=== PATIENT | male | born 1935 | race Caucasian/White ===

== ENCOUNTER 2022-12-28 13:05 | Inpatient (IN) | payer MEDICARE, BC ==
[2022-12-28] MEDS ORDERED: Magnesium Sulfate/Water 2 GM in Premix Bag 1 BAG IV ONE (14:42)
[2022-12-28] MEDS ORDERED: Aspirin 81 MG Tab.Chew PO STA (14:44)
[2022-12-28] MEDS ORDERED: Sodium Chloride 0.9% 1,000 ML IV SCH (14:45)
[2022-12-28] MEDS ORDERED: Iopamidol 755 Mg/ML 100 ML Bottle IVPUSH ONE (14:50)
[2022-12-28] MEDS ORDERED: Sodium Chloride 0.9% 10 ML Syringe FLUSH ONE (14:50)
[2022-12-28] MEDS ORDERED: Sodium Chloride 0.9% 100 ML IV SCH (15:00)
[2022-12-28] MEDS ORDERED: cefTRIAXone 1 GM in Sodium Chloride 0.9% 100 ML IV STA (15:48)
[2022-12-28 17:08] LABS: CORONAVIRUS COVID-19 NAA NEGATIVE (NEGATIVE)
[2022-12-28] MEDS ORDERED: cefTRIAXone 1 GM Vial ONE (19:16)
[2022-12-28] MEDS ORDERED: Docusate Sodium 100 MG Cap PO PRN (20:58)
[2022-12-28] MEDS ORDERED: Ondansetron 4 MG/2 ML SDV IV PRN (20:58)
[2022-12-28] MEDS ORDERED: Polyethylene Glycol 3350 Powder 17 GM Packet PO PRN (20:58)
[2022-12-28] MEDS ORDERED: Sodium Chloride 0.9% 10 ML Syringe FLUSH PRN (20:58)
[2022-12-28] MEDS ORDERED: Ondansetron 4 MG Tab.DIS PO PRN (20:58)
[2022-12-28] MEDS: Sodium Chloride 0.9% 1,000 ML IV SCH (23:24)
[2022-12-29] MEDS: Sodium Chloride 0.9% 1,000 ML IV SCH ×2 (08:53→12:25)
[2022-12-29] MEDS: cefTRIAXone 2 GM in Sodium Chloride 0.9% 100 ML IV SCH ×2 (12:51→20:15)
[2022-12-29] MEDS: Metoprolol Tartrate 25 MG Tab PO SCH (13:56)
[2022-12-29] MEDS: Apixaban 5 MG Tab PO SCH (20:13)
[2022-12-29] MEDS: Acetaminophen 325 MG Tab PO PRN (20:14)
[2022-12-30] MEDS: Metoprolol Tartrate 25 MG Tab PO SCH ×2 (00:02→12:13)
[2022-12-30] MEDS: Sodium Chloride 0.9% 1,000 ML IV SCH ×4 (03:52→21:30)
[2022-12-30] MEDS: atorvaSTATin 20 MG Tab PO SCH (08:26)
[2022-12-30] MEDS: Cyanocobalamin (Vitamin B12) 1,000 MCG Tab PO SCH (08:26)
[2022-12-30] MEDS: Apixaban 5 MG Tab PO SCH ×2 (08:26→20:24)
[2022-12-30] MEDS: Tamsulosin 0.4 MG Cap.ER PO SCH (08:26)
[2022-12-30] MEDS: Acetaminophen 325 MG Tab PO PRN (20:24)
[2022-12-30] MEDS: cefTRIAXone 2 GM in Sodium Chloride 0.9% 100 ML IV SCH (20:25)
[2022-12-31] MEDS: Metoprolol Tartrate 25 MG Tab PO SCH (01:02)
[2022-12-31] MEDS: Tamsulosin 0.4 MG Cap.ER PO SCH (09:35)
[2022-12-31] MEDS: Cyanocobalamin (Vitamin B12) 1,000 MCG Tab PO SCH (09:35)
[2022-12-31] MEDS: atorvaSTATin 20 MG Tab PO SCH (09:35)
[2022-12-31] MEDS: Apixaban 5 MG Tab PO SCH (09:35)
== END 2022-12-31 14:56 | disposition home or self-care (01) | DRG 558 ==
LOC: JD.ED 13:05 → JD.MS 20:59
PROVIDERS: ADMIT Hospitalist; ATTEND Hospitalist
DX: M62.82 Rhabdomyolysis (principal); N39.0 Urinary tract infection, site not specified; I48.91 Unspecified atrial fibrillation; E78.00 Pure hypercholesterolemia, unspecified; I12.9 Hypertensive chronic kidney disease with stage 1 through stage 4 chronic kidney disease, or unspecified chronic kidney disease; N18.30 Chronic kidney disease, stage 3 unspecified; N40.0 Benign prostatic hyperplasia without lower urinary tract symptoms; Z20.822 Contact with and (suspected) exposure to COVID-19; M19.90 Unspecified osteoarthritis, unspecified site; Z87.442 Personal history of urinary calculi; Z86.711 Personal history of pulmonary embolism; Z79.899 Other long term (current) drug therapy; Z98.890 Other specified postprocedural states; Z79.01 Long term (current) use of anticoagulants; Z87.891 Personal history of nicotine dependence
CPT/HCPCS: 0241U; 36415; 71045; 71045-26; 71275; 71275-26; 80048; 80053; 81001; 82550; 83735; 84484; 85007; 85025; 85027; 85379; 85610; 85730; 87086; 87088; 87186; 93005; 93010; 93307; 94760; 94762; 96361; 96365; 96366; 96367; 97110-GP; 97116-GP; 97162-GP; 97166-GO; 97530-GP; 97535-GO; 99285; 99285-25; A9270-GY; J0696; J3475; J3490; J7030; Q9967